=== PATIENT | female | born 1985 | race Asian ===

== ENCOUNTER 2022-07-15 08:40 | Emergency (ER) | payer BC ==
[~2022-07-15] VITALS: Ht 157.5 cm; Wt 70.3 kg
[2022-07-15 08:55] VITALS: BP 97/54
--- NOTE | 2022-07-15 09:59 | NUR ---
lwbs at this time
== END 2022-07-15 09:59 | disposition left against medical advice (07) ==
LOC: MED 08:40
DX: R10.84 Generalized abdominal pain (principal); Z53.21 Procedure and treatment not carried out due to patient leaving prior to being seen by health care provider